=== PATIENT | male | born 1945 | race Caucasian/White ===

== ENCOUNTER → 2016-11-30 | Outpatient (CLI) | payer MEDICARE ==
[2016-01-20 12:45] VITALS: BP 96/68
[~2016-11-30] MED LIST: ASPI81TA44 PO; ATOR40TA59 PO; LISI10TA2 PO; LISI2.5T PO; METO25TA4 PO; NICO1PAT25 TP; PRAS10TA4 PO; REGADENOSON 0.4 MG/5 ML DISP.SYRIN. IV ONE
--- NOTE | 2016-11-30 13:25 | RAD ---
APPROVED REPORT Test Type: Pharmacological Stress Nurse/Tech: Hannah Pastrana R.N. Test Indications: cad Cardiac History: stent 01/2016, mi, htn, smoker Medications: see ehr Medical History: see ehr Resting ECG: SR with pac and pvc noted Resting Heart Rate: 64 bpm Resting Blood Pressure: 107/53mmHg Pretest Chest Pain: No chest pain Nurse/Tech Notes lungs cta, heart tones regular, good radial pulse Consent: The procedure was explained to the patient in lay terms. Informed consent was witnessed. Cezar eout was entered into [employer]. History and Stress Test performed by Hannah Pastrana R.N. Pharm. Details Pharmacologic stress testing was performed using 0.4mg per 5ml of regadenoson given intravenously ove r 7-10 seconds. Stress Symptoms No chest pain or symptoms. POST EXERCISE Reason for Termination: Infusion complete Max HR: 99 bpm Max Blood Pressure: 122/62mmHg Chest Pain: No. Arrhythmia: No. ST Change: No. INTERPRETATION Stress EKG Conclusion: The resting EKG shows a sinus rhythm with mild nonspecific ST segment changes, PACs and one PVC. The stress EKG shows no significant changes from baseline. No EKG evidence of stress-induced ischemia. Imaging Protocol IMAGE PROTOCOL: Rest Tc-99m/stress Tc-99m 1 day Rest: Stress: Viability: Radiopharm.Tc99m [id number] Sestamibi [id number] 33.7mCi Img Date 11/30/2016 11/30/2016 Inj-Img [id number]. 60min. Rest Admin Site:IV - Right AntecubitalAdministrator:Laxim rAriaga, RT (R)(N) Stress Admin Site: IV - Right AntecubitalAdministrator: DONNIE Alston, ARRT (R)(N) STRESS DATA End Diast. Vol.77.0mlAv. Heart Rate85.0bpm End Syst. Vol.16.0mlCO Index BSA0.0L/min Myocardial Esku157.0gEject. Hsajkqlj29.0% Stress Rates Pk. Fill Rate4.36EDV/secLVtime Pk. Fill 203.41msec Pk. Empty Rate5.44ESV/secLVtime Pk. Tjfsc834.78msec 08/16 Pk. Fill0.98EDV/sec Stress Scores Regional WT1.00Summed WT4.00 Regional WM0.00Summed WM2.00 LV Perfusion The stress scans showed no significant defects. The rest scans showed no significant defects. Nuclear imaging shows no reversible ischemia or infarct. [employer] Left ventricular systolic function is normal with an ejection fraction of greater than 70%. LV Perf. Quant 17 Seg. SSS1.00 17 Seg. SRS9.00 17 Seg. SDS0.00 Stress Defect Extent (% LAD)5.00Rest Defect Extent (% LAD)34.40Rev. Defect Extent (% LAD)0.00 Stress Defect Extent (% LCX) 0.00Rest Defect Extent (% LCX)0.00Rev. Defect Extent (% LCX)0.00 Stress Defect Extent (% RCA)0.00Rest Defect Extent (% RCA)0.00Rev. Defect Extent (% RCA)0.00 Stress Defect Extent (% MONA)1.70Rest Defect Extent (% MONA)12.00Rev. Defect Extent (% MONA)0.00 Conclusion 1. No EKG evidence of stress-induced ischemia. 2. Nuclear imaging shows no reversible ischemia or infarct. 3. Normal left ventricular systolic function with an ejection fraction of greater than 70%. 4. Low risk Lexiscan nuclear stress test.
== END | disposition home or self-care (01) ==
LOC: NM 07:26
PROVIDERS: ATTEND Internal Medicine Cardiovascular Disease
DX: I21.4 Non-ST elevation (NSTEMI) myocardial infarction (principal); I11.9 Hypertensive heart disease without heart failure; I49.5 Sick sinus syndrome; F17.200 Nicotine dependence, unspecified, uncomplicated
CPT/HCPCS: 78452; 93017; 96374; 96375; 96376; A9500; J2785

== ENCOUNTER → 2016-12-07 | Outpatient (CLI) | payer MEDICARE ==
[2016-01-20 12:45] VITALS: BP 96/68
[~2016-12-07] MED LIST changes: -REGADENOSON 0.4 MG/5 ML DISP.SYRIN. IV ONE
[2016-12-07 10:13] LABS: ALBUMIN 3.5 g/dL (3.4-5.0); GFR 73.7; POTASSIUM 4.4 mmol/L (3.5-5.1); TOTAL BILIRUBIN 0.3 mg/dL (0.2-1.0); TOTAL PROTEIN 6.9 g/dL (6.4-8.2)
[2016-12-07 10:20] LABS: CHOLESTEROL/HDL RATIO 2.7
== END | disposition home or self-care (01) ==
LOC: LAB 09:39
PROVIDERS: ATTEND Nurse Practitioner Adult Health
DX: E78.5 Hyperlipidemia, unspecified (principal)
CPT/HCPCS: 36415; 80053; 80061

== ENCOUNTER → 2017-12-06 | Outpatient (CLI) | payer MEDICARE ==
[2017-12-06 09:52] LABS: ADD MAN DIFF? NO
[2017-12-06 09:59] LABS: BASO # 0.1 x10^3/uL (0.0-0.2); BASO % 2 % (0-3); EOS # 0.3 x10^3/uL (0.0-0.7); EOS % 5 % (0-3); HEMATOCRIT 35.1 % (39.0-53.0); HEMOGLOBIN 11.9 g/dL (13.0-17.5); LYMPH # 1.5 x10^3/uL (1.0-4.8); LYMPH % 23 % (24-48); MEAN CORPUSCULAR HEMOGLOBIN 32 pg (25-35); MEAN CORPUSCULAR HGB CONC 34 g/dL (31-37); MEAN CORPUSCULAR VOLUME 94 fL (79-100); MONO # 0.8 x10^3/uL (0.0-1.1); MONO % 12 % (0-9); NEUT # 3.8 x10^3uL (1.8-7.7); NEUT % 59 % (31-73); PLATELET COUNT 275 x10^3/uL (140-400); RED BLOOD COUNT 3.74 x10^6/uL (4.30-5.70); RED CELL DISTRIBUTION WIDTH 13.4 % (11.5-14.5); WHITE BLOOD COUNT 6.5 x10^3/uL (4.0-11.0)
[2017-12-06 10:21] LABS: ALBUMIN 3.4 g/dL (3.4-5.0); ALK PHOS 67 U/L (46-116); ALT (SGPT) 19 U/L (16-63); ANION GAP 7 (6-14); AST (SGOT) 18 U/L (15-37); BLOOD UREA NITROGEN 18 mg/dL (8-26); BUN/CREATININE RATIO 18 (6-20); CALCIUM 9.2 mg/dL (8.5-10.1); CARBON DIOXIDE 29 mmol/L (21-32); CHLORIDE 96 mmol/L (98-107); CHOLESTEROL 129 mg/dL (0-200); GFR 73.5; GLUCOSE 105 mg/dL (70-99); HDLC 58 mg/dL (40-60); LDLC 59 mg/dL (0-100); NON-HDL CHOLESTEROL 71 mg/dL (0-129); POTASSIUM 4.3 mmol/L (3.5-5.1); SODIUM 132 mmol/L (136-145); TOTAL BILIRUBIN 0.4 mg/dL (0.2-1.0); TOTAL PROTEIN 6.8 g/dL (6.4-8.2); TRIGLYCERIDES 61 mg/dL (0-150); VLDLC 12 mg/dL (0-40)
[2017-12-06 10:22] LABS: CHOLESTEROL/HDL RATIO 2.2
== END | disposition home or self-care (01) ==
LOC: LAB 09:19
DX: I25.10 Atherosclerotic heart disease of native coronary artery without angina pectoris (principal)
CPT/HCPCS: 36415; 80053; 80061; 85025

== ENCOUNTER → 2018-02-13 | Outpatient (CLI) | payer MEDICARE | END | disposition home or self-care (01) | LOC: KCIC 10:48 | DX: Z01.818 Encounter for other preprocedural examination (principal); J43.9 Emphysema, unspecified; I11.9 Hypertensive heart disease without heart failure; E78.5 Hyperlipidemia, unspecified; Z87.891 Personal history of nicotine dependence | CPT/HCPCS: 71046 ==